=== PATIENT | female | born 1995 | race Hispanic/Latino ===

== ENCOUNTER 2020-09-27 16:09 | Emergency (ER) | payer SELFPAY ==
[2020-09-27] MEDS ORDERED: CEFTRIAXONE SODIUM 500 MG VIAL ONE (16:15)
[2020-09-27] MEDS ORDERED: AZITHROMYCIN 250 MG TABLET PO ONE (16:16)
[2020-09-27] MEDS ORDERED: LIDOCAINE HCL 2% 20ML ONE (16:16)
[2020-09-27 16:29] LABS: APPEARANCE,URINE Clear (CLEAR); BILIRUBIN,URINE Negative (NEGATIVE); COLOR,URINE Yellow (YELLOW); GLUCOSE, URINE (UA) Negative (NEGATIVE); KETONES,URINE Negative (NEGATIVE); LEUKOCYTE ESTERASE ,URINE Negative (NEGATIVE); NITRATE,URINE Negative (NEGATIVE); OCCULT BLOOD,URINE Negative (NEGATIVE); PROTEIN,URINE Negative (NEGATIVE)
[2020-09-29 22:08] LABS: CHLAMYDIA DNA N.A.AMPLIFY Negative (Negative)
== END 2020-09-27 16:39 | disposition home or self-care (01) ==
LOC: EDH 16:09
DX: A74.9 Chlamydial infection, unspecified (principal); Z20.2 Contact with and (suspected) exposure to infections with a predominantly sexual mode of transmission
CPT/HCPCS: 81003; 87486; 87797; 96372; 99283; J0696; J3490